=== PATIENT | male | born 1980 | race Two or more races ===

== ENCOUNTER 2016-05-03 12:00 | Emergency (ER) | payer MEDICAID ==
[~2016-05-03] VITALS: Ht 182.9 cm; Wt 165.6 kg
[2016-05-03 12:58] LABS: Basophils # (auto) 0.1 uL; Basophils % (auto) 0.5 % (0.0-2.0); DEFINITIVE VIEW TRANSMISSION; Eosinophils # (auto) 0.2 uL; Eosinophils % (auto) 2.4 % (0.0-7.0); Hematocrit 43.5 % (41.0-53.0); Hemoglobin 14.1 g/dL (13.5-17.5); Lymphocytes # (auto) 2.1 uL; Lymphocytes % (auto) 20.6 % (10.0-50.0); Mean Corpuscular Hemoglobin 25.3 pg (28.0-32.0); Mean Corpuscular Hgb Conc. 32.4 g/dL (32.0-36.0); Mean Corpuscular Volume 77.9 fL (80.0-100.0); Mean Platelet Volume 8.7 fL (7.4-10.4); Monocytes # (auto) 0.5 uL; Monocytes % (auto) 4.8 % (0.0-12.0); Neutrophils # (auto) 7.5 uL; Neutrophils % (auto) 71.7 % (37.0-80.0); Platelet Count (auto) 307 10^3/uL (140-450); Red Cell Distribution Width 15.8 % (11.6-16.0); White Blood Cell 10.4 10^3/uL (4.4-10.8)
[2016-05-03 13:16] LABS: Salicylate < 1.7 mg/dL (2.8-20.0)
[2016-05-03 13:17] LABS: BUN/Creatinine Ratio 15.6; Calcium 8.5 mg/dL (8.5-10.1); Potassium 3.5 mmol/L (3.5-5.1)
[2016-05-03 13:19] LABS: Bilirubin, Total 0.6 mg/dL (0.2-1.0)
[2016-05-03 13:22] LABS: Acetaminophen < 2.0 ug/mL (10-30)
[2016-05-03 20:23] VITALS: BP 138/82
== END 2016-05-03 21:16 | disposition home or self-care (01) ==
LOC: ER 12:00
DX: T14.91 Suicide attempt (principal); E11.9 Type 2 diabetes mellitus without complications; I10 Essential (primary) hypertension; I25.2 Old myocardial infarction; X83.8XXA Intentional self-harm by other specified means, initial encounter; Y93.89 Activity, other specified; Y99.8 Other external cause status; Y92.89 Other specified places as the place of occurrence of the external cause
CPT/HCPCS: 36415; 80053; 80329; 82962; 85025; 99284; G0434